=== PATIENT | female | born 1945 | race Caucasian/White ===

== ENCOUNTER 2016-10-29 08:42 | Outpatient (CLI) | payer MEDICARE ==
[2016-10-29 09:39] LABS: Bilirubin Negative (Negative); Blood, Urine Negative (Negative); Clarity Clear (Clear); Glucose, Urine (Dipstick) Negative (Negative); Leukocyte Negative (Negative); Nitrite Negative (Negative); Protein, Urine (Dipstick) Negative (Neg-Trace); Urobilinogen 0.2 mg/dL (0.2-1.0); pH, Urine 6.5 (5.0-9.0)
[2016-10-29 09:44] LABS: #Basophils 0.1 thou/uL (0.0-0.2); #Eosinphils 0.3 thou/uL (0.0-0.7); #Lymphocytes 0.7 thou/uL (1.20-3.40); #Monocytes 0.6 thou/uL (0.11-0.59); %Basophils 0.6 % (0.0-1.0); %Eosinophils 2.2 % (0.0-10.0); %Lymphocytes 5.4 % (21.0-51.0); %Monocytes 4.5 % (0.0-10.0); %Neutrophils 87.3 % (42.0-75.0); Hemoglobin 13.6 g/dL (12.0-16.0); Mean Corpuscular HGB CONC 31.3 g/dL (32.0-36.0); Mean Corpuscular Hemoglobin 29.5 pg (27.0-31.0); Mean Corpuscular Volume 94.3 fl (81.0-99.0); Mean Platelet Volume 8.6 fL (7.4-10.4); Platelet Count 205 thou/uL (130-400); Red Blood Cell (RBC) Count 4.61 mill/uL (4.20-5.40); White Blood Cell (WBC) Count 12.6 thou/uL (4.8-10.8)
[2016-10-29 09:48] LABS: Hemoglobin A1c 6.3 % (4.0-6.0)
[2016-10-29 09:50] LABS: Bacteria/HPF None Seen HPF (None Seen); RBC/HPF 0-3 HPF (0-3); Squamous Epithelial 0-3 HPF (0-3); WBC/HPF None Seen HPF (0-3)
[2016-10-29 09:54] LABS: ALT (SGPT) 7 U/L (0-55); AST (SGOT) 10 U/L (5-34); Albumin 4.1 g/dL (3.4-4.8); Alkaline Phosphatase 69 U/L (40-150); Anion Gap 17 mmol/L (10-20); BUN (Urea Nitrogen) 23 mg/dL (9.8-20.1); Bilirubin, Total 0.3 mg/dL (0.2-1.2); Calc. Creatinine Clearance 0 mL/min (70-130); Calcium 9.7 mg/dL (7.8-10.44); Carbon Dioxide 36 mmol/L (23-31); Cardiac Risk 2.9 (Less than 4.5); Chloride 92 mmol/L (98-107); Cholesterol 247 mg/dL (< 200 Desired); Digoxin 0.93 ng/mL (0.8-2.0); Estimated GFR-MDRD 65; Globulin 3.4 g/dL (2.4-3.5); Glucose 158 mg/dL (80-115); HDL Cholesterol 85 mg/dL (>60 Neg Risk); LDL Cholesterol, Calculated 140 mg/dL; Potassium 4.1 mmol/L (3.5-5.1); Protein, Total 7.5 g/dL (5.8-8.1); Sodium 141 mmol/L (136-145); Triglycerides 110 mg/dL (Less than 150); Uric Acid 6.4 mg/dL (2.6-6.0)
[2016-10-29 10:41] LABS: T4 6.5 ug/dL (4.87-11.72); Thyroid Stimulating Hormone 1.5076 uIU/mL (0.35-4.94)
[2016-10-29 17:55] LABS: Creatinine, Urine Less than 20.00 mg/dL (47-110)
== END 2016-10-29 08:43 | disposition home or self-care (01) ==
LOC: MADLAB 08:42
PROVIDERS: ATTEND Internal Medicine
DX: I48.91 Unspecified atrial fibrillation (principal); E11.49 Type 2 diabetes mellitus with other diabetic neurological complication; N18.3 Chronic kidney disease, stage 3 (moderate); I11.9 Hypertensive heart disease without heart failure
CPT/HCPCS: 36415; 80053; 80061; 80162; 81001; 82043; 83036; 84436; 84443; 84480; 84550; 85025; 87086

== ENCOUNTER 2016-12-07 13:30 | Emergency (ER) | payer MEDICARE ==
[~2016-12-07 13:30] MED LIST: Sodium Chloride 0.9% 100 ML BAG ONE
[2016-12-07 14:13] LABS: #Lymphocytes 0.7 thou/uL (1.20-3.40); #Monocytes 0.6 thou/uL (0.11-0.59); #Neutrophils 6.2 thou/uL (1.40-6.50); %Basophils 0.5 % (0.0-1.0); %Eosinophils 0.4 % (0.0-10.0); %Lymphocytes 9.6 % (21.0-51.0); %Neutrophils 81.5 % (42.0-75.0); Hemoglobin 12.4 g/dL (12.0-16.0); Mean Corpuscular HGB CONC 31.9 g/dL (32.0-36.0); Mean Corpuscular Hemoglobin 29.3 pg (27.0-31.0); Mean Corpuscular Volume 92.1 fl (81.0-99.0); Mean Platelet Volume 7.5 fL (7.4-10.4); Platelet Count 181 thou/uL (130-400); RBC Distribution Width 15.2 % (11.5-14.5); Red Blood Cell (RBC) Count 4.21 mill/uL (4.20-5.40); White Blood Cell (WBC) Count 7.6 thou/uL (4.8-10.8)
[2016-12-07] MEDS ORDERED: Azithromycin 250 MG TAB ONE (14:16)
[2016-12-07] MEDS ORDERED: Dexamethasone 10 MG/ML VIAL ONE (14:16)
[2016-12-07] MEDS ORDERED: Magnesium Sulfate 2 GM/NS 0.9% 50 ML BAG ONE (14:17)
[2016-12-07] MEDS ORDERED: methylPREDNISolone Sod Succ/PF 125 MG/2 ML VIAL ONE (14:17)
[2016-12-07] MEDS ORDERED: cefTRIAXone\\ROCEPHIN 2 GM VIAL ONE (14:17)
--- NOTE | 2016-12-07 14:18 | RAD ---
FRONTAL AND LATERAL IMAGING OF THE CHEST 12/07/2016 HISTORY: Shortness of breath. COMPARISON: 08/05/2016 FINDINGS: There is no pneumothorax. The cardiac silhouette is enlarged, a stable finding. There is extensive interstitial opacity within both lungs, most prominent in the right upper lobe and bilateral lower lobes, grossly unchanged. No lobar consolidation. There is mild blunting of the costophrenic angles, which could represent pleural scar and/or small v olume pleural fluid. Given the degree of interstitial opacity, it is difficult to exclude a degree of interstitial edema. IMPRESSION: 1. There is extensive interstitial opacity bilaterally, the majority of which is chronic in nature. It is difficult to exclude a mild degree of interstitial pulmonary edema. No alveolar edema or lo bar consolidation. 2. Stable enlargement of the cardiac silhouette. POS: [facility]
[2016-12-07 14:19] LABS: PTT 24.7 SEC (22.9-36.1); Prothrombin Time 13.4 SEC (12.0-14.7)
[2016-12-07 14:28] LABS: ALT (SGPT) 11 U/L (0-55); AST (SGOT) 16 U/L (5-34); Albumin 3.8 g/dL (3.4-4.8); Alkaline Phosphatase 66 U/L (40-150); BUN (Urea Nitrogen) 31 mg/dL (9.8-20.1); Bilirubin, Total 0.3 mg/dL (0.2-1.2); CK (CPK) 76 U/L (29-168); Calc. Creatinine Clearance 0 mL/min (70-130); Calcium 9.9 mg/dL (7.8-10.44); Estimated GFR-MDRD 55; Globulin 3.8 g/dL (2.4-3.5); Glucose 147 mg/dL (80-115); Magnesium 1.8 mg/dL (1.6-2.6); Protein, Total 7.6 g/dL (5.8-8.1)
[2016-12-07 14:29] LABS: Digoxin 0.73 ng/mL (0.8-2.0)
[2016-12-07 14:31] LABS: CKMB 1.7 ng/mL (0-6.6); Troponin I 0.087 ng/mL (< 0.028)
[2016-12-07 14:50] LABS: Anion Gap 17 mmol/L (10-20); Carbon Dioxide 40 mmol/L (23-31); Chloride 89 mmol/L (98-107); Potassium 4.5 mmol/L (3.5-5.1); Sodium 141 mmol/L (136-145)
== END 2016-12-07 16:30 | disposition short-term general hospital (02) ==
LOC: MADERS 13:30
DX: J44.1 Chronic obstructive pulmonary disease with (acute) exacerbation (principal); I25.10 Atherosclerotic heart disease of native coronary artery without angina pectoris; I50.9 Heart failure, unspecified; R74.8 Abnormal levels of other serum enzymes; E11.9 Type 2 diabetes mellitus without complications
CPT/HCPCS: 36415; 71020; 80053; 80162; 82550; 82553; 83735; 83880; 84443; 84484; 85025; 85610; 85730; 87040; 93005; 94760; 96365; 96367; 96375; J0696; J1100; J2930; J3475; J7050; J7620